=== PATIENT | female | born 1945 | race African-American/Black ===

== ENCOUNTER 2018-05-11 16:35 | Emergency (ER) | payer OTHER ==
[~2018-05-11] VITALS: Ht 165.1 cm; Wt 65.0 kg
[2018-05-11] MEDS ORDERED: SODIUM CHLORIDE 0.9% 1,000 ML IV ONE (16:51)
[2018-05-11 17:40] LABS: BASOPHILS % 0.2 % (0.0-2.0); EOSINOPHILS % 0.4 % (0.0-5.0); HEMATOCRIT. 48.8 % (36.0-48.0); HEMOGLOBIN. 16.7 g/dL (12.0-16.0); LYMPHOCYTES % 25.9 % (20.0-50.0); MEAN CORPUSCULAR HEMOGLOBIN 36.1 pg (28.0-32.0); MEAN CORPUSCULAR VOLUME 105.4 fL (81.0-99.0); MEAN PLATELET VOLUME 7.9 fl (7.4-10.4); MONOCYTES % 5.8 % (2.0-8.0); NEUTROPHILS % 67.7 % (40.0-76.0); PLATELET 237 x1000/uL (130-400); RED BLOOD CELL COUNT 4.63 mill/uL (4.2-5.4); RED CELL DISTRIBUTION WIDTH 13.6 % (11.6-14.6)
[2018-05-11 17:50] LABS: INR 1.1; PARTIAL THROMBOPLASTIN TIME 25.4 sec (23.4-31.0); PROTHROMBIN TIME 10.8 sec (9.1-11.1)
[2018-05-11 17:51] LABS: CHLORIDE 107 mEq/L (98-107); ETHANOL BLOOD 160 mg/dL
[2018-05-11] MEDS ORDERED: POTASSIUM CHLORIDE 20MEQ TABLET SR PO ONE (18:00)
[2018-05-11] MEDS ORDERED: LORAZEPAM 2MG/ML CPJ IV ONE (19:00)
[2018-05-11 20:40] VITALS: BP 140/63
== END 2018-05-11 21:24 | disposition short-term general hospital (02) ==
LOC: ER 16:35 → CANBEDREQ 21:29
DX: I95.9 Hypotension, unspecified (principal); R42 Dizziness and giddiness; I10 Essential (primary) hypertension; E87.6 Hypokalemia; F10.129 Alcohol abuse with intoxication, unspecified; Y90.6 Blood alcohol level of 120-199 mg/100 ml
CPT/HCPCS: 36415; 71045; 80053; 83605; 83690; 83880; 84145; 84484; 85025; 85610; 85730; 87040; 93005; 96361; 96374; 99285; G0482; J2060; J7030